=== PATIENT | female | born 1980 | race Caucasian/White ===

== ENCOUNTER 2019-05-08 13:18 | Inpatient (IN) | payer OTHER ==
[~2019-05-08] VITALS: Ht 152.4 cm; Wt 68.0 kg
[2019-05-08] MEDS ORDERED: AIRBORNE EFFER1 EACH PO (17:38)
[2019-05-08] MEDS ORDERED: ZITHROMAX500 MG PO (17:38)
[2019-05-08] MEDS ORDERED: VISTARIL25 MG PO (17:38)
== END 2019-05-14 18:35 | disposition home or self-care (01) | DRG 310 ==
LOC: ER 13:18 → SEC-K 22:04 → MEDJ 22:04
PROVIDERS: ADMIT Internal Medicine
PROC: B246ZZZ Ultrasonography of Right and Left Heart (ICD-10-PCS; principal; 2019-05-09)
PROC: 4A12X4Z Monitoring of Cardiac Electrical Activity, External Approach (ICD-10-PCS; 2019-05-09)
PROC: BW28ZZZ Computerized Tomography (CT Scan) of Head (ICD-10-PCS; 2019-05-10)
PROC: 8E0ZXY6 Isolation (ICD-10-PCS; 2019-05-10)
PROC: B030ZZZ Magnetic Resonance Imaging (MRI) of Brain (ICD-10-PCS; 2019-05-12)
PROC: B345ZZZ Ultrasonography of Bilateral Common Carotid Arteries (ICD-10-PCS; 2019-05-13)
PROC: B348ZZZ Ultrasonography of Bilateral Internal Carotid Arteries (ICD-10-PCS; 2019-05-13)
DX: I47.1 Supraventricular tachycardia (principal); I70.0 Atherosclerosis of aorta; I07.1 Rheumatic tricuspid insufficiency; R00.2 Palpitations; B96.0 Mycoplasma pneumoniae [M. pneumoniae] as the cause of diseases classified elsewhere; F41.1 Generalized anxiety disorder; R47.1 Dysarthria and anarthria; R42 Dizziness and giddiness
CPT/HCPCS: 70553